=== PATIENT | female | born 1965 | race Caucasian/White ===

== ENCOUNTER 2021-04-30 13:45 | Emergency (ER) | payer MEDICARE, MEDICAID ==
[2021-04-30] MEDS ORDERED: Baclofen 10 MG Tab PO PRN (15:13)
[2021-04-30] MEDS ORDERED: traMADol 50 MG Tab PO PRN (15:13)
--- NOTE | 2021-04-30 15:21 | EDM.PDOC ---
ED HPI GENERAL MEDICAL PROBLEM - General Chief Complaint: General Stated Complaint: PSYCH/DIZZY Time Seen by Provider: 04/30/21 13:50 Source of Information: Reports: Patient History Limitations: Reports: No Limitations - History of Present Illness INITIAL COMMENTS - FREE TEXT/NARRATIVE: Patient presented to the ED because of low back pain radiating to both lower extremities. She also c/o neck pain with shock like sensations on both UE. She had an MRI done that is indeterminate and is scheduled to see a Neurologist at [facility] this Thursday. - Related Data Allergies Allergy/AdvReac Type Severity Reaction Status Date / Time MARIELLE Inhibitors Allergy Cough Verified 04/30/21 13:57 hydrocodone Allergy Vomiting Verified 04/30/21 13:57 morphine Allergy Itching Verified 04/30/21 13:57 nitrofurantoin Allergy Rash Verified 04/30/21 13:57 [From Macrobid] Home Meds: Home Meds ALPRAZolam [Xanax] 1 mg PO QID PRN 04/30/21 [History] Baclofen 10 mg PO Q8H PRN #30 tablet 04/30/21 [Rx] Divalproex Sodium [Divalproex Sodium ER] 1,500 mg PO DAILY 04/30/21 [History] Ferrous Gluconate 324 mg PO DAILY 04/30/21 [History] Fluticasone/Umeclidin/Vilanter [Trelegy Ellipta 100-62.5-25] 1 dose INH DAILY 04/30/21 [History] Montelukast [Singulair] 10 mg PO DAILY 04/30/21 [History] Pantoprazole 20 mg PO DAILY 04/30/21 [History] Ramelteon [Rozerem] 8 mg PO BEDTIME 04/30/21 [History] Simvastatin 40 mg PO BEDTIME 04/30/21 [History] amLODIPine [Norvasc] 5 mg PO DAILY 04/30/21 [History] atenoloL [Atenolol] 50 mg PO DAILY 04/30/21 [History] hydroCHLOROthiazide [Hydrochlorothiazide] 25 mg PO DAILY 04/30/21 [History] traMADol [Ultram] 100 mg PO Q8H PRN #30 tab 04/30/21 [Rx] traZODone 50 mg PO BEDTIME 04/30/21 [History] ED ROS GENERAL - Review of Systems Review Of Systems: See Below Constitutional: Reports: No Symptoms HEENT: Reports: No Symptoms Respiratory: Reports: No Symptoms Cardiovascular: Reports: No Symptoms Endocrine: Reports: No Symptoms GI/Abdominal: Reports: No Symptoms : Reports: No Symptoms Musculoskeletal: Reports: Neck Pain, Back Pain Skin: Reports: No Symptoms Neurological: Reports: No Symptoms Psychiatric: Reports: No Symptoms Hematologic/Lymphatic: Reports: No Symptoms Immunologic: Reports: No Symptoms ED EXAM, GENERAL - Physical Exam Exam: See Below Exam Limited By: No Limitations General Appearance: Alert, No Apparent Distress Eye Exam: Bilateral Eye: PERRL Ears: Normal External Exam, Normal Canal Nose: Normal Inspection, Normal Mucosa, No Blood Throat/Mouth: Normal Inspection, Normal Lips Head: Atraumatic, Normocephalic Neck: Normal Inspection, Supple, Non-Tender, Full Range of Motion Respiratory/Chest: No Respiratory Distress, Lungs Clear, Normal Breath Sounds, No Accessory Muscle Use, Chest Non-Tender Cardiovascular: Normal Peripheral Pulses, Regular Rate, Rhythm, No Edema, No Gallop, No JVD, No Murmur, No Rub GI/Abdominal: Normal Bowel Sounds, Soft, Non-Tender, No Organomegaly Back Exam: Normal Inspection, Full Range of Motion Extremities: Normal Inspection, Normal Range of Motion, Non-Tender Neurological: Alert, Oriented, CN II-XII Intact, Normal Cognition Course - Vital Signs Last Recorded V/S: Last Vital Signs Temp 36.8 C 04/30/21 13:45 Pulse 68 04/30/21 13:45 Resp 20 04/30/21 13:45 BP 131/77 04/30/21 13:45 Pulse Ox 95 04/30/21 13:45 - Orders/Labs/Meds Labs: Laboratory Tests 04/30/21 04/30/21 Range/Units 14:30 14:30 WBC 12.3 H (3.0-10.3) x10-3/uL RBC 5.04 (3.60-5.20) x10(6)uL Hgb 14.8 (11.4-15.5) g/dL Hct 44.6 (34.2-48.2) % MCV 88.4 (76.7-100.5) fL MCH 29.4 (23.9-33.9) pg MCHC 33.3 (31.9-34.8) g/dL RDW 14.0 (12.3-16.5) % Plt Count 259 (151-488) x10(3)uL MPV 6.5 L (7.1-12.4) fL Neut % (Auto) 72.2 (30.8-76.2) % Lymph % (Auto) 20.0 (18.4-52.1) % Avery % (Auto) 5.7 (4.4-15.7) % Eos % (Auto) 1.0 (0.6-8.1) % Baso % (Auto) 1.1 (0.2-1.5) % Neut # (Auto) 8.9 H (1.5-6.3) x10-3/uL Lymph # (Auto) 2.5 (1.0-4.4) x10-3/uL Avery # (Auto) 0.7 (0.3-1.0) x10-3/uL Eos # (Auto) 0.1 (0.0-0.8) x10-3/uL Baso # (Auto) 0.1 (0.0-0.1) x10-3/uL Sodium 138 (135-145) mmol/L Potassium 4.3 (3.5-5.3) mmol/L Chloride 103 (100-110) mmol/L Carbon Dioxide 32 (21-32) mmol/L BUN 15 (7-18) mg/dL Creatinine 1.0 (0.55-1.02) mg/dL Est Cr Clr Drug Dosing TNP Estimated GFR (MDRD) 57 L (>60) BUN/Creatinine Ratio 15.0 (9-20) Glucose 101 (80-116) mg/dL Calcium 9.4 (8.6-10.2) mg/dL Total Bilirubin 0.4 (0.1-1.3) mg/dL AST 30 H (5-25) IU/L ALT 37 H (12-36) U/L Alkaline Phosphatase 149 H (56-112) IU/L Total Protein 7.6 (6.0-8.0) g/dL Albumin 3.4 L (3.5-5.2) g/dL Globulin 4.2 g/dL Albumin/Globulin Ratio 0.8 Meds: Medications Discontinued Medications Generic Name Dose Route Start Last Admin Trade Name Freq PRN Reason Stop Dose Admin Baclofen 10 mg 04/30/21 15:13 Baclofen 10 Mg Tab PO TID PRN Spasms Tramadol HCl 100 mg 04/30/21 15:13 Tramadol 50 Mg Tab PO Q8H PRN Pain Departure - Departure Time of Disposition: 15:20 Disposition: Home, Self-Care 01 Condition: Good Clinical Impression: Chronic low back pain, Chronic neck pain, DDD (degenerative disc disease) - Discharge Information Prescriptions: Baclofen 10 mg PO Q8H PRN #30 tablet PRN Reason: Spasms traMADol [Ultram] 100 mg PO Q8H PRN #30 tab PRN Reason: Pain Instructions: Degenerative Disk Disease, Chronic Back Pain, [id number] Referrals: PCP,None [Primary Care Provider] - Forms: ED Department Discharge Additional Instructions: Please read discharge instructions on chronic and low back pain, DDD- degenerative disc disease Take tramadol 100 mg, tylenol 1000 mg and baclofen 10 mg every 8 hours as needed for pain and spasm Keep your appointment to see your Neurologist this Thursday Sepsis Event Note (ED) - Focused Exam Vital Signs: Vital Signs Temp Pulse Resp BP Pulse Ox 04/30/21 13:45 36.8 C 68 20 131/77 95
== END 2021-04-30 15:35 | disposition home or self-care (01) ==
LOC: FB.ED 13:45
DX: M54.5 Low back pain (principal); M54.2 Cervicalgia; G89.29 Other chronic pain; Z88.8 Allergy status to other drugs, medicaments and biological substances; Z88.5 Allergy status to narcotic agent; Z88.1 Allergy status to other antibiotic agents; Z79.899 Other long term (current) drug therapy
CPT/HCPCS: 36415; 80053; 85025; 99283

== ENCOUNTER 2021-11-01 10:35 | Emergency (ER) | payer MEDICARE, MEDICAID ==
[2021-11-01] MEDS ORDERED: Sodium Chloride 0.9% 1,000 ML IV SCH (11:15)
[2021-11-01] MEDS ORDERED: Pantoprazole 40 MG Vial IVPUSH ONE (11:15)
[2021-11-01 11:52] LABS: ESTIMATED GFR 57 (>60)
[2021-11-01] MEDS ORDERED: Iopamidol 755 MG/ML 150 ML Bottle IV ONE ×2 (13:19)
[2021-11-01] MEDS ORDERED: Diatrizoate Meglumine/Diatrizoate Sodium 37% 30 ML Bottle PO ONE (13:21)
== END 2021-11-01 14:45 | disposition home or self-care (01) ==
LOC: FB.ED 10:35
DX: K52.9 Noninfective gastroenteritis and colitis, unspecified (principal); K57.33 Diverticulitis of large intestine without perforation or abscess with bleeding; Z88.5 Allergy status to narcotic agent; Z88.1 Allergy status to other antibiotic agents; Z88.8 Allergy status to other drugs, medicaments and biological substances; Z79.899 Other long term (current) drug therapy
CPT/HCPCS: 36415; 74177; 80053; 82272; 85025; 96374; 99285; C9113; J7030; Q9963; Q9967; 99283